=== PATIENT | male | born 1970 | race Caucasian/White ===

== ENCOUNTER 2023-02-13 11:03 | Outpatient (CLI) | payer OTHER, SELFPAY ==
--- NOTE | ~2023-02-13 | XR_ITS ---
EXAM: XR_[id number]_CR DATE: 02/13/2023 11:23 HISTORY: RT sided neck pain, possibly slept wrong, near C7 . COMPARISON: None available. FINDINGS: The cervicothoracic junction is not included in the [id number]. Craniocervical associati on and atlantoaxial joint are aligned. No prevertebral soft tissue swelling. Mild angular kyphosis ce ntered at C6-7 Vertebral bodies are aligned. Vertebral body heights are maintained. Mild multilevel l ower cervical disc space narrowing. Mild multilevel facet hypertrophy. IMPRESSION: Mild multilevel lower cervical degenerative disc disease and facet arthropathy. Reviewed, dictated and finalized at location [facility] [employer]
== END 2023-02-13 11:04 | disposition home or self-care (01) ==
LOC: CHSIMG 11:09
PROVIDERS: PCP Internal Medicine; Visit Provider Family Medicine
DX: M50.323 Other cervical disc degeneration at C6-C7 level (principal)
CPT/HCPCS: 72040

== ENCOUNTER 2024-09-08 20:03 | Emergency (ER) | payer OTHER, SELFPAY ==
[2024-09-08] VITALS (7 sets, daily range): BP systolic 156–164; BP diastolic 80–90; PULSE 62–68; RESP 15–19; TEMP 36.8; O2SAT 94–98
--- NOTE | 2024-09-08 20:15 | ED_ITS ---
HPI - Chest Pain General Chief Complaint: Chest Pain Stated Complaint: Chest pain Time Seen by Provider: 09/08/24 20:14 History of Present Illness HPI narrative: Pt was lying in bed and turned around and felt tightness in his chest for a coupl eof seconds that resolved and then later recurred for a coupl eof seconds and resolved. Pt has no pain now. Pt says his Bp has been elevated and he is working on it with his PCP. Pt has no pain now. Related Data Home Medications ?Medication ?Instructions ?Recorded ?Confirmed ?Last Taken ?Type atorvastatin 10 mg tablet (Lipitor) 10 mg PO DAILY 08/04/24 08/04/24 Unknown His tory Allergies Allergy/AdvReac Type Severity Reaction Status Date / Time No Known Allergies Allergy Unverified 08/04/24 13:31 Review of Systems Review of Systems: All systems reviewed & are unremarkable except as noted in HPI and below PMFSH Social History Social History (System 07/15/21 @ 14:00 by Jerman Toney) Smoking status: Never smoker Exam Const: General: healthy appearing and no acute distress Nutritional Appearance: well nourished Orientation/consciousness: patient oriented x3 Limitations: no limitations Eyes: Conjunctivae: conjunctivae normal EOM: EOMs intact bilaterally Chest: Chest palpation & inspection: normal inspection of the chest Resp: Effort & Inspection: normal respiratory effort Auscultation: clear to auscultation bilaterally Cardio: Rate: regular rate Rhythm: regular rhythm GI: GI Palp: Yes Soft to palpation and No Tenderness to palpation present (GI) Auscultation: normal bowel sounds Skin: General skin exam: normal color Rashes: no rashes Wounds: no wounds Neuro: General: patient oriented x3, moves all extremities, no meningeal signs, no focal motor deficits and CN's II-XI intact bilaterally Speech: normal speech Extrem: General: normal to inspection and no clubbing, cyanosis or edema Psych: Mental Status: mental status grossly normal Affect: Anxious affect present Attitude: cooperative Course Vital Signs Vital signs: Vital Signs Temperature 98.3 F 09/08/24 20:05 Pulse Rate 68 09/08/24 20:05 Respiratory Rate 16 09/08/24 20:05 Blood Pressure 164/90 H 09/08/24 20:05 Pulse Oximetry 96 09/08/24 20:05 Oxygen Delivery Room Air 09/08/24 20:05 Temperature 98.3 F 09/08/24 20:05 Pulse Rate 68 09/08/24 20:31 Respiratory Rate 19 09/08/24 20:31 Blood Pressure 156/80 H 09/08/24 20:31 Pulse Oximetry 94 09/08/24 20:31 Oxygen Delivery Room Air 09/08/24 20:05 MDM - Chest Pain MDM Narrative Medical decision making narrative: given story and brief nature of symptoms not likely cardiac but muscular. ekg normal. home on robaxin. ECG Data EKG #1: Interpretation: nsr rate 69 interventricular conduction delay no st ot t wave changes Discharge Plan Discharge Clinical Impression: Atypical chest pain Patient Disposition: Home Condition: Stable Instructions: Antibiotic Form, Chest Wall Pain (ED) Patient Language: Mongolian Prescriptions: New methocarbamol 750 mg tablet 750 mg PO TID Qty: 30 0RF No Action atorvastatin [Lipitor] 10 mg tablet 10 mg PO DAILY losartan-hydrochlorothiazide 50-12.5 mg tablet 1 tablet PO DAILY Qty: 30 5RF Follow-up/Referrals: Jessi Shell MD [Primary Care Provider] - Quality HEART score for chest pain patients History: slightly suspicious ECG: normal Age: > 45 and < 65 years Risk factors: 1 or 2 risk factors Troponin: < or = to 1x normal limit Heart score: 2
--- NOTE | 2024-09-08 20:28 | ECG_ITS ---
Test Date: 2024-09-08 20:11:08 Measurements Intervals [place] Rate: 69 P: 65 KS: 167 QRS: -1 QRSD: 114 T: 49 QT: 389 QTc: 419 Interpretive Statements SINUS RHYTHM WITHIN NORMAL LIMITS No previous ECG available for comparison Electronically Signed On 09-10-2024 08:20:33 CDT by Durga Rudolph M.D.
== END 2024-09-08 20:46 | disposition home or self-care (01) ==
LOC: CHSED 20:28
PROVIDERS: Emergency Provider Emergency Medicine; PCP Internal Medicine
DX: R07.89 Other chest pain (principal)
CPT/HCPCS: 93005; 99283; 99284